=== PATIENT | male | born 2000 | race Caucasian/White ===

== ENCOUNTER 2023-05-08 21:32 | Emergency (ER) | payer OTHER ==
[2023-05-08 22:11] VITALS: BP 129/75; PULSE 60; RESP 16; TEMP 98.8
[2023-05-09] MEDS ORDERED: IBUPROFEN 800 MG TAB PO STA (01:30)
[2023-05-09] MEDS ORDERED: OFLOXACIN 0.3% OPHTH DROPS 5 ML BOTTLE RIGHT EAR STA (01:30)
--- NOTE | 2023-05-09 01:32 | ED ---
General Adult HPI - General Chief complaint: ENT Stated complaint: Right Ear Pain, clogged Time Seen by Provider: 05/09/23 01:00 Source: patient, RN notes reviewed Mode of arrival: ambulatory Limitations: no limitations - History of Present Illness Initial comments: Patient is a 23-year-old male who presents emergency Department complaining of right ear pain. Has been ongoing since Wednesday. Patient swam in a bonilla on Wednesday. Describes a clear discharge from the right ear as well. Is also complaining of chronic headaches and other chronic symptoms that are unchanged. No fevers. No known sick contacts. Denies sore throat. Denies nasal discharge. His no other acute complaints this time. Presents for further evaluation. - Related Data Previous Rx's Medication Instructions Recorded Ofloxacin 0.3% Otic Soln [Floxin 5 drops RIGHT EAR BID 7 Days #5 ml 05/09/23 0.3% Otic Soln] Allergies Allergy/AdvReac Type Severity Reaction Status Date / Time No Known Allergies Allergy Verified 05/09/23 01:31 Review of Systems ROS Statement: Those systems with pertinent positive or pertinent negative responses have been documented in the HPI. Review of Systems: CONST: Denies fever EYES: Denies blurry vision ENT: Endorses right ear pain, discharge C/V: Denies Chest pain RESP: Denies shortness of breath GI: Denies abdominal pain : Denies dysuria SKIN: Denies rash. MSK: Denies joint pain. NEURO: Denies headache ROS Other: All systems not noted in ROS Statement are negative. Past Medical History Past Medical History: No Reported History Past Surgical History: No Surgical Hx Reported Past Psychological History: Anxiety Smoking Status: Vaper Past Alcohol Use History: None Reported Past Drug Use History: Marijuana General Exam - General Exam Comments Initial Comments: General: Appears in no acute distress. HEAD: Normal with no signs of head trauma. EYES: EOMI. ENT: Hearing grossly intact. Right tympanic membrane within normal limits but rate ear canal is erythematous with clear discharge with some wall edema. Appears to have otitis externa of the right ear. Left ear within normal limits. No sinus tenderness to palpation. Posterior oropharynx within normal limits. RESPIRATORY: No respiratory distress. C/V: Regular rate and rhythm. ABD: Abdomen is nondistended. EXT: No obvious deformity. SKIN: No rashes or lesions observed on exposed skin. NEURO: Alert and oriented. Limitations: no limitations Course Vital Signs 05/08/23 05/08/23 22:08 22:11 Temperature 98.8 F Pulse Rate 60 Respiratory 16 Rate Blood Pressure 129/75 O2 Sat by Pulse 97 Oximetry Medical Decision Making - Medical Decision Making Was pt. sent in by a medical professional or institution (MARCIAL Gooden, [employer]IL[employer]PER[employer] SUPERVISOR, urgent care, hospital, or snf...) When possible be specific @ -No Did you speak to anyone other than the patient for history (EMS, parent, family, police, friend...)? What history was obtained from this source @ -No Did you review nursing and triage notes (agree or disagree)? Why? @ -I reviewed and agree with nursing and triage notes Were old charts reviewed (outside hosp., previous admission, EMS record, old EKG, old radiological studies, urgent care reports/EKG's, snf records)? Report findings @ -No old charts were reviewed Differential Diagnosis (chest pain, altered mental status, abdominal pain women, abdominal pain men, vaginal bleeding, weakness, fever, dyspnea, syncope, headache, dizziness, GI bleed, back pain, seizure, CVA, palpatations, mental health, musculoskeletal)? @ -Ear infection, tympanic membrane rupture, otitis externa, otitis media. This list is not all-inclusive. EKG interpreted by me (3pts min.). @ -None done X-rays interpreted by me (1pt min.). @ -None done CT interpreted by me (1pt min.). @ -None done U/S interpreted by me (1pt. min.). @ -None done What testing was considered but not performed or refused? (CT, X-rays, U/S, labs)? Why? @ -None What meds were considered but not given or refused? Why? @ -None Did you discuss the management of the patient with other professionals (professionals i.e. MARCIAL Gooden, [employer] SUPERVISOR, lab, RT, psych nurse, social media specialist, gun repair clerk, teacher, seaman officer, porter sample case)? Give summary @ -No Was smoking cessation discussed for >3mins.? @ -No Was critical care preformed (if so, how long)? @ -No Were there social determinants of health that impacted care today? How? (Homelessness, low income, unemployed, alcoholism, drug addiction, transportatio n, low edu. Level, literacy, decrease access to med. care, nursing home, rehab)? @ -No Was there de-escalation of care discussed even if they declined (Discuss DNR or withdrawal of care, Hospice)? DNR status @ -No What co-morbidities impacted this encounter? (DM, HTN, Smoking, COPD, CAD, Cancer, CVA, ARF, Chemo, Hep., AIDS, mental health diagnosis, sleep apnea, morbid obesity)? @ -None Was patient admitted / discharged? Hospital course, mention meds given and route, prescriptions, significant lab abnormalities, going to OR and other pertinent info. @ -Based on the patient's presentation and physical exam, do believe he has expressed otitis externa. Vital signs within acceptable limits. Exam otherwise within normal limits. Discussed findings on clinical exam with him. He'll be started on ofloxacin drops. Also receive a dose of Motrin here. He was in agreement this plan. He'll be given a prescription. Recently moved to the area and I will provide him with [facility] PCPs. I will provide the patient with a prescription for ofloxacin otic drops. I instructed the patient to follow up with their PCP in the next 1-3 days. I provided contact information for follow up with PCPs. I explained that the patient should return to the emergency department if they experience any worsening symptoms. Strict return precautions were discussed with the patient. The patient expressed understanding of these instructions. I answered all questions that the patient had. The patient was discharged home in good condition with their prescriptions and follow up information. Undiagnosed new problem with uncertain prognosis? @ -No Drug Therapy requiring intensive monitoring for toxicity (Heparin, Nitro, Insulin, Cardizem)? @ -No Were any procedures done? @ -No Diagnosis/symptom? @ -Right Otitis externa Acute, or Chronic, or Acute on Chronic? @ -Acute Uncomplicated (without systemic symptoms) or Complicated (systemic symptoms)? @ -Uncomplicated Side effects of treatment? @ -No Exacerbation, Progression, or Severe Exacerbation? @ -No Poses a threat to life or bodily function? How? (Chest pain, [place], [place], pneumonia, PE, COPD, DKA, ARF, appy, cholecystitis, CVA, Diverticulitis, Homicidal, Suicidal, threat to staff... and all critical care pts) @ -No Disposition Clinical Impression: Otitis externa Disposition: HOME SELF-CARE Condition: Good Instructions (If sedation given, give patient instructions): Swimmer's Ear (ED) Prescriptions: Ofloxacin 0.3% Otic Soln [Floxin 0.3% Otic Soln] 5 drops RIGHT EAR BID 7 Days #5 ml Is patient prescribed a controlled substance at d/c from ED?: No Referrals: None,Stated [Primary Care Provider] - 1-2 days Mike Bauer DO [Doctor of Osteopathic Medicine] - 1-2 days Forms: [facility] PCPs Time of Disposition: 01:32
== END 2023-05-09 02:22 | disposition home or self-care (01) ==
LOC: EC 21:32
DX: H60.91 Unspecified otitis externa, right ear (principal); F17.290 Nicotine dependence, other tobacco product, uncomplicated; F12.90 Cannabis use, unspecified, uncomplicated; Z86.59 Personal history of other mental and behavioral disorders
CPT/HCPCS: 99282

== ENCOUNTER → 2024-07-06 | Outpatient (CLI) | payer MEDICARE, OTHER ==
--- NOTE | 2024-07-06 17:10 | CA ---
Exercise Stress Test Report Name: David Baxter Exam Date: 07/06/2024 11:20 Exam Location: [facility] Stress Ht (in): 73 Wt (lb): 172 BSA: 2.02 Ordering Phys: Agapito Avila MD Referring Phys: FANY Technologist: Anthony Underwood Age: 24 Gender: M : 2000 Procedure CPT: Indications: R55 SYNCOPE R07.9 CHEST PAIN Q24.9 ICD-10 Codes: Patient History: Medications: NONE Meds past 24 hrs: Pretest Chest Pain: STRESS TEST Sae Protocol Exercise Duration (min:sec): 03:[address] Depressions (mm): Angina Score: Mc Score: Resting HR (bpm): 75 Peak HR (bpm): 109 Resting BP (mmHg): 129 / 72 Peak BP (mmHg): 155 / 92 MPHR: 198 Target HR: 168 % MPHR: 55 METS: 5.3 Total Dose: Peak Dose: Atropine: Double Product: 73118 BP Response: Stress Termination: DYSPNEA UNABLE TO CONTINUE Stress Symptoms: DIFFICULTY IN BREATHING Stress Summary: ECG ANALYSIS Resting ECG: Normal sinus rhythm normal axis normal intervals Stress ECG: Patient exercised on Sae protocol for 3 and half minutes achieving for mets 55% of predicted maximal heart rate without chest pain or diagnostic ST segment depression CONCLUSIONS Extremely poor exercise tolerance Inconclusive EKG portion of the stress test due to inability to attain target heart rate Dr. Kb Delong MD (Electronically Signed) Final Date: 06 July 2024 17:10
--- NOTE | 2024-07-06 17:12 | CA ---
Transthoracic Echo Report Name: David Baxter Age: 24 Gender: M : 2000 Exam Date: 07/06/2024 11:29 Exam Location: [place] Echo Ht (in): 73 Wt (lb): 170 Ordering Physician: Agapito Avila MD Attending/Referring Phys: Margarita OSORIO Traveling Electrician Hermelinda Lang, MARY Procedure CPT: Indications: R55 SYNCOPE R07.9 CHEST PAIN Q24.9 Cardiac Hx: Technical Quality: Good Contrast 1: Total Dose (mL): Contrast 2: Total Dose (mL): MEASUREMENTS (Male / Female) Normal Values 2D ECHO LV Diastolic Diameter PLAX 5.1 cm 4.2 - 5.9 / 3.9 - 5.3 cm LV Systolic Diameter PLAX 3.5 cm IVS Diastolic Thickness 1.0 cm 0.6 - 1.0 / 0.6 - 0.9 cm LVPW Diastolic Thickness 1.0 cm 0.6 - 1.0 / 0.6 - 0.9 cm LV Relative Wall Thickness 0.4 RV Internal Dim ED PLAX 1.7 cm LA Systolic Diameter LX 2.9 cm 3.0 - 4.0 / 2.7 - 3.8 cm LV Diastolic Volume MOD BP 85.5 cm??? 67 - 155 / 56 - 104 cm??? LV Systolic Volume MOD BP 34.1 cm??? 22 - 58 / 19 - 49 cm??? LV Ejection Fraction MOD BP 60.2 % >= 55 % LV Cardiac Index MOD BP 2120.8 cm???/min???m??? LV Diastolic Volume MOD 4C 58.1 cm??? LV Systolic Volume MOD 4C 23.4 cm??? LV Ejection Fraction MOD 4C 59.7 % LV Cardiac Index MOD 4C 1428.5 cm???/min???m??? LV Diastolic Length 4C 7.5 cm LV Systolic Length 4C 6.3 cm LV Diastolic Volume MOD 2C 106.7 cm??? LV Systolic Volume MOD 2C 41.6 cm??? LV Ejection Fraction MOD 2C 61.1 % LV Cardiac Index MOD 2C 2683.3 cm???/min???m??? LV Diastolic Length 2C 8.8 cm LV Systolic Length 2C 7.6 cm LA Volume 38.3 cm??? 18 - 58 / 22 - 52 cm??? LA Volume Index 19.2 cm???/m??? 16 - 28 cm???/m??? M-MODE Aortic Root Diameter MM 2.6 cm LA Systolic Diameter MM 3.5 cm LA Ao Ratio MM 1.4 DOPPLER MV Area PHT 2.5 cm??? Mitral E Point Velocity 55.9 cm/s Mitral A Point Velocity 44.0 cm/s Mitral E to A Ratio 1.3 MV Deceleration Time 309.4 ms TR Peak Velocity 153.1 cm/s TR Peak Gradient 9.4 mmHg FINDINGS Left Ventricle Left ventricular ejection fraction is estimated at 55-60 %. Normal Left ventricular size, wall thickness, systolic function with no obvious regional wall motion abnormalities. Normal Left ventricular diastolic filling pattern. Right Ventricle Mild right ventricular dilatation. Right ventricular systolic pressure within normal limits. Right Atrium Normal right atrial size. Left Atrium Normal left atrial size. Mitral Valve Structurally normal mitral valve. Trace to mild mitral regurgitation. No mitral stenosis. Aortic Valve Trileaflet aortic valve. No aortic valve stenosis or regurgitation. Tricuspid Valve Structurally normal tricuspid valve. Mild tricuspid regurgitation. No tricuspid stenosis. Pulmonic Valve Structurally normal pulmonic valve. Trace pulmonic regurgitation.no pulmonic stenosis. Pericardium No pericardial or pleural effusion. Aorta Normal size aortic root and proximal ascending aorta. CONCLUSIONS Normal LV function Previewed by: Dr. Kb Delong MD (Electronically Signed) Final Date: 06 July 2024 17:11
== END | disposition home or self-care (01) ==
LOC: RADNMMAIN 10:22
PROVIDERS: ATTEND Family Medicine
DX: R55 Syncope and collapse (principal); R07.9 Chest pain, unspecified; Q24.9 Congenital malformation of heart, unspecified
CPT/HCPCS: 93017; 93306